=== PATIENT | female | born 1980 | race Caucasian/White ===

== ENCOUNTER 2023-10-30 08:10 | Emergency (ER) | payer OTHER, SELFPAY ==
[2023-10-30 08:11] VITALS: BP 123/86
[2023-10-30 08:27] VITALS: BMI 32.6
--- NOTE | 2023-10-30 09:11 | ED.GENMED ---
History of Present Illness
General
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
Source: patient
Exam Limitations: none
Time Seen by Provider: 10/30/23 08:49
Travel History
Have you had any contact with someone who has COVID-19?: No
Do you have any symptoms of coronavirus? Fever > 100 degrees, chills, cough, shortness of breath, sore throat, loss of taste or smell, muscle aches, or headache?: No
History of Present Illness
History of Present Illness:
43-year-old female presents with pelvic pain ongoing for several weeks up to several months. She states she has been seen by anglesmith recently through [place] and they dilated her cervix in the office to perform an endometrial biopsy after an
ultrasound showed thickened endometrium. She states she was due for her menstrual cycle to start last week but has not yet had it. She states this has happened before and she is needed to be dilated for that. No chance of . She is
monogamous with her . She notes a clear discharge is ongoing. No difficulty urinating or having bowel movements. No fever or flank pain. No other complaints at this time
Past History
Past History
ED Past Medical History: Asthma
ED Past Surgical History: Cardiac (cardiac surgery as child )
Social History
Tobacco: Smoker
Alcohol: None
Drug: None
Personal:
Living: with family
Employment: Employed
Family History
Family History: Hypertension and Asthma
Phy Exam
Physical Exam
Physical Exam:
General: Well-appearing and comfortable female no acute respiratory distress
HEENT: Normocephalic atraumatic neck is supple
Heart: Regular rate and rhythm no murmurs
Lungs: Clear no wheeze or rales
Abdomen soft tender to the suprapubic area no guarding rebound normal bowel sounds nondistended
Extremities: No cyanosis
Skin warm no rash
Course
Orders/Labs/Results
Orders:
Orders
10/30/23 09:09
0.9% Sodium Chloride 1000 ml [Nss] 1,000 ml IV BOLUS
Ketorolac [Toradol] 15 mg IV NOW STA
US Pelvis W Transvag Combined Urgent
Comment:
Reason For Exam: pelvic pain
10/30/23 09:12
Test Result ONCE
10/30/23 09:35
Complete Blood Count/With Diff Urgent
Comprehensive Metabolic Panel Urgent
HCG, Serum Qualitative Screen Urgent
10/30/23 12:16
CT Abd/pelvis W Iv Cont Urgent
Comment:
Reason For Exam: lower abdominal pain
Abnormal Lab Results
10/30/23
09:35
WBC 13.9 H 10^3/uL
(4.8-10.8)
MPV 11.0 H fL
(7.4-10.4)
Abs Immat Gran (auto) 0.1 H 10^3/uL
(0-0.05)
Absolute Neuts (auto) 10.7 H 10^3/uL
(1.4-6.5)
Absolute Monos (auto) 0.8 H 10^3/uL
(0.1-0.6)
Neutrophils % 76.6 H %
(42.2-75.2)
Lymphocytes % 13.2 L %
(20.5-51.1)
Creatinine 0.5 L mg/dL
(0.6-1.0)
10/30/23 09:35
10/30/23 09:35
Vital Signs
Initial and Last Documented VS:
Initial Vital Signs
Temp Pulse Resp BP Pulse Ox
97.6 F 95 20 123/86 95
10/30/23 08:11 10/30/23 08:11 10/30/23 08:11 10/30/23 08:11 10/30/23 08:11
Last Documented Vital Signs
Temp Pulse Resp BP Pulse Ox
97.6 F 73 18 109/73 99
10/30/23 08:11 10/30/23 09:37 10/30/23 09:37 10/30/23 09:37 10/30/23 09:37
MDM/Problems Addressed
Differential Diagnosis Includes:
Pelvic pain. Consider ovarian cyst versus torsion. She is late for her menstrual cycle. Will check test. Patient denies chance of but will evaluate for possible ectopic . No apparent risk for sexually transmitted
infections. Ultrasound pelvis pending fluids ordered labs pending
*Critical Care Note
Total Time (30-74mins, 75-104mins- exclusive of procedures): Not Applicable
Update Note
Update Note:
Ultrasound pelvis shows 3.5 cm left-sided ovarian cyst otherwise good blood flow to both ovaries. Endometrial stripe is slightly thickened. Due to ongoing pain. CT was ordered which demonstrates again the ovarian cyst but no other acute findings.
Patient describes needing her cervix dilated in order to have menstrual cycle. Explained we do not do this in the emergency room. Reached out to our anglesmith on-call who recommended following up with the patient's established anglesmith.
We recommend ibuprofen for pain. No indication for any further intervention at this time. Patient is somewhat dissatisfied with the lack of answers or ability closely follow-up with gynecology however she understood.
ED Attending Note
-
Portions of this chart may have been created with voice recognition software.� Occasional wrong word or��sound alike� substitutions may have occurred due to the inherent limitations of voice recognition software.
Discharge Plan
Departure
Patient Disposition: Home (Routine Discharge)
Date of Disposition: 10/30/23
Time of Disposition: 13:53
Patient with high blood pressure during this ER visit?: No
Discharge Problem:
Ovarian cyst
Instructions: Abdominal Pain
Prescriptions:
No Action
albuterol sulfate 2.5 MG/3 ML solution for nebulization
2.5 mg inhalation Q4HPRN PRN (Reason: wheeze/cough) Qty: 1 0RF
Advair Hfa: 115/21 Mcg Inhaler: Inhalation
1 puff inhalation BID
ranitidine HCl [Zantac Maximum Strength] 150 MG tablet
150 mg PO DAILY
levalbuterol tartrate 1 PUFF HFA aerosol inhaler
2 puff inhalation R Q4HPRN PRN (Reason: wheezing)
rabies vacc,human diploid (PF) [Imovax Rabies Vaccine (PF)] 1 ML recon soln
1 ml IM . DIRECTED Qty: 3 0RF
Rx Instructions:
See Rabies Vaccine Post Exposure Prophylaxis Instruction Sheet for Dosing Instructions
Referrals:
Ismael Goldberg MD [Family Provider] -
Activity Restrictions/Additional Instructions:
Continue with ibuprofen for pain. Follow-up with gynecology. Return if worse otherwise
Interventions
Interventions:
*Risk Screen - Suicide Last Done: 10/30/23 08:11
*General Assessment Last Done: 10/30/23 08:11
*Neglect/Abuse Screening Last Done: 10/30/23 08:11
ED- Fall Risk Assessment Last Done: 10/30/23 08:27
*ED COVID-19 Vaccine History Last Done: 10/30/23 08:27
ED-Female Genitourinary Assessment Last Done: 10/30/23 08:27
Discharge Date and Time
Print Language: GUAMANIAN
[2023-10-30] MEDS: NSS 1000 IV (09:30)
[2023-10-30] MEDS: TORADOL 15 MG IV (09:31)
[2023-10-30 09:37] VITALS: BP 109/73
[2023-10-30 09:44] LABS: % Basophils 0.7 % (0-2); % Eosinophils 3.4 % (0-6); % Immature Granulocytes 0.4 % (0-0.5); % Lymphocytes 13.2 % (20.5-51.1); % Monocytes 5.7 % (1.7-9.3); % Neutrophils 76.6 % (42.2-75.2); Absolute Basophils 0.1 10^3/uL (0-0.2); Absolute Eosinophils 0.5 10^3/uL (0-0.7); Absolute Immature Granulocytes 0.1 10^3/uL (0-0.05); Absolute Lymphocytes 1.8 10^3/uL (1.2-3.4); Absolute Monocytes 0.8 10^3/uL (0.1-0.6); Absolute Neutrophils 10.7 10^3/uL (1.4-6.5); Hematocrit 38.1 % (37.0-47.0); Hemoglobin 13.4 g/dL (12.0-16.0); Mean Corp Hgb Conc. 35.2 g/dL (33.0-37.0); Mean Corpuscular Hgb 29.7 pg (27.0-31.0); Mean Corpuscular Volume 84.5 fL (81.0-99.0); Nucleated Red Blood Cells % 0 %; Platelet Count 271 10^3/uL (130-400); Red Blood Cell Count 4.51 10^6/uL (4.20-5.40); Red Cell Dist. Width 12.3 % (11.5-14.5); White Blood Cell Count 13.9 10^3/uL (4.8-10.8)
[2023-10-30 10:06] LABS: HCG, Serum Qualitative Screen Negative
[2023-10-30 10:12] LABS: ALT (SGPT) 26 U/L (0-35); AST (SGOT) 33 U/L (14-36); Albumin 4.2 g/dl (3.5-5.0); Alkaline Phosphatase 80 U/L (38-126); Blood Urea Nitrogen 10 mg/dl (7-17); Calcium 9.1 mg/dl (8.4-10.2); Carbon Dioxide 24 mmol/L (22-30); Chloride 106 mmol/L (98-107); Estimated Creatinine Clearance > 125 ml/min; Glucose 96 mg/dl (70-99); Potassium 4.4 mmol/L (3.5-5.1); Sodium 138 mmol/L (135-145); Total Bilirubin 0.8 mg/dl (0.2-1.3); eGFR > 60.00
[2023-10-30 14:02] VITALS: BP 116/81
== END 2023-10-30 14:02 | disposition home or self-care (01) ==
LOC: EMR 08:10
PROVIDERS: Physician Assistant; EMERGENCY PHYSICIAN Student in an Organized Health Care Education/Training Program; FAMILY PHYSICIAN Internal Medicine
DX: N83.202 Unspecified ovarian cyst, left side (principal)
CPT/HCPCS: 99285; 96374; 96361; 74177; 76830; 76856; 80053; 84703; 85025; Q9967